=== PATIENT | female | born 1995 | race Caucasian/White ===

== ENCOUNTER 2020-03-02 21:19 | Emergency (ER) | payer OTHER, SELFPAY ==
[2020-03-02 21:23] VITALS: BP 145/82; PULSE 82; RESP 18; TEMP 37.1; O2SAT 100; BMI 28.3
== END 2020-03-03 01:05 | disposition left against medical advice (07) ==
LOC: HO.ED 03-03 01:03
PROVIDERS: Emergency Provider Emergency Medicine
DX: K08.89 Other specified disorders of teeth and supporting structures (principal)
CPT/HCPCS: 99281; 99282